=== PATIENT | female | born 1960 | race Caucasian/White ===

== ENCOUNTER 2017-11-29 20:19 | Emergency (ER) | payer BC ==
--- NOTE | 2017-11-29 21:00 | NUR ---
CALLED PATIENT. NO RESPONSE
--- NOTE | 2017-11-29 21:20 | NUR ---
CALLED PATIENT. NO RESPONSE
--- NOTE | 2017-11-29 21:56 | NUR ---
CALLED PATIENT. NO RESPONSE
== END 2017-11-29 21:57 | disposition left against medical advice (07) ==
LOC: ER 20:20
DX: Z53.21 Procedure and treatment not carried out due to patient leaving prior to being seen by health care provider (principal)
CPT/HCPCS: A4606; Z7610